=== PATIENT | male | born 1980 | race Two or more races ===

== ENCOUNTER → 2024-11-27 | Emergency (ER) | payer BC ==
[~2024-11-27] VITALS: Ht 170.2 cm; Wt 81.6 kg
[~2024-11-27] MED LIST: ZYLOPRIM100 M1 PO
== END | disposition left against medical advice (07) ==
LOC: ER 11:24
DX: Z53.21 Procedure and treatment not carried out due to patient leaving prior to being seen by health care provider (principal)